=== PATIENT | female | born 1965 | race Caucasian/White ===

== ENCOUNTER 2018-03-31 10:07 | Emergency (ER) | payer OTHER ==
--- NOTE | 2018-03-31 10:59 | ERPHSYRPT ---
- History of Present Illness Time Seen by Provider: 03/31/18 10:35 Source: patient Exam Limitations: no limitations Physician History: 52 y/o white female with h/o migraine headaches presents with migraine headache for 4 days. pt is not on any chronic, abortive migraine medications. pt denies trauma to head. her headache pain is typical for her migraines. Timing/Duration: day(s) (4) Quality: aching, throbbing Head Pain Location: global Severity of Pain-Max: moderate Severity of Pain-Current: moderate Recent Head Trauma: no recent headache/trauma Modifying Factors: Improves With: exposure to light Associated Symptoms: sensitive to light, No confusion, No dizziness, No facial pain, No loss of consciousness, No vision changes, No visual disturbance Previous symptoms: same symptoms as today Allergies/Adverse Reactions: aspirin Allergy (Verified 01/24/13 11:40) cefadroxil [Cefadroxil] Allergy (Verified 01/24/13 11:40) Penicillins Allergy (Verified 01/24/13 11:40) Sulfa (Sulfonamide Antibiotics) Allergy (Verified 11/02/13 15:54) acetaminophen [From Tylenol] Adverse Reaction (Verified 11/02/13 15:54) Home Medications: Clonazepam 1 mg PO BID 12/18/11 [History] Coreg 12.5 mg 12.5 mg PO BID 12/18/11 [History] Glimepiride 2 mg 2 mg PO BID 12/18/11 [History] Lantus Solostar 35 units SQ HS 12/18/11 [History] Proair Hfa 1 puff IH PRN 12/18/11 [History] ceLEXa 20 MG 20 mg PO DAILY 12/18/11 [History] Furosemide 40 mg [Lasix 40 MG] 1 tab PO DAILY 01/24/13 [History] Lisinopril/Hydrochlorothiazide [Lisinopril-Hctz 10-12.5 mg Tab] 1 tab PO DAILY 01/24/13 [History] Sumatriptan Succinate [Imitrex] 1 tab PO DAILY 01/24/13 [History] Tizanidine HCl 4 mg [Zanaflex 4 MG] 1 tab PO Q6H PRN 01/24/13 [History] Hx Tetanus, Diphtheria Vaccination/Date Given: Yes (UNKNOWN) Hx Influenza Vaccination/Date Given: No Hx Pneumococcal Vaccination/Date Given: No - Review of Systems Constitutional: No Symptoms Eyes: Photophobia, No Vision Changes, No Double Vision Ears, Nose, & Throat: No Symptoms Respiratory: No Symptoms Cardiac: No Symptoms Abdominal/Gastrointestinal: No Symptoms Genitourinary Symptoms: No Symptoms Musculoskeletal: No Symptoms Skin: No Symptoms Neurological: Headache Psychological: No Symptoms Endocrine: No Symptoms Hematologic/Lymphatic: No Symptoms Immunological/Allergic: No Symptoms All Other Systems: Reviewed and Negative - Past Medical History Pertinent Past Medical History: Yes Neurological History: No Pertinent History ENT History: No Pertinent History Cardiac History: Hypertension Respiratory History: COPD, Asthma, Emphysema Endocrine Medical History: Diabetes Type II Musculoskeletal History: Degenerative Disk Disease GI Medical History: No Pertinent History History: No Pertinent History Psycho-Social History: Depression, Anxiety Female Reproductive Disorders: No Pertinent History - Past Surgical History Past Surgical History: Yes Neuro Surgical History: No Pertinent History Cardiac: No Pertinent History Respiratory: No Pertinent History Gastrointestinal: Appendectomy, Cholecystectomy Genitourinary: No Pertinent History Musculoskeletal: No Pertinent History Female Surgical History: Hysterectomy Other Surgical History: hands and neck - Social History Smoking Status: Current every day smoker How long have you smoked: 33 YEARS Exposure to second hand smoke: Yes Alcohol Use: None Drug Use: none Patient Lives Alone: No Significant Family History: heart disease, diabetes, hypertension - Physical Exam General Appearance: mild distress, alert, anxiety Eye Exam: PERRL/EOMI, eyes nml inspection Ears, Nose, Throat Exam: normal ENT inspection, moist mucous membranes Neck Exam: normal inspection, non-tender, supple, full range of motion Respiratory Exam: normal breath sounds, lungs clear, airway intact, No chest tenderness, No respiratory distress, No accessory muscle use, No rhonchi, No wheezing, No stridor Cardiovascular Exam: regular rate/rhythm, normal heart sounds, normal peripheral pulses Gastrointestinal/Abdominal Exam: soft, No tenderness, No guarding, No rebound Back Exam: normal inspection, normal range of motion, No CVA tenderness Extremity Exam: normal inspection, normal range of motion, pelvis stable Mental Status Exam: alert, oriented x 3, cooperative mysql dba Exam: normal hearing, normal speech, PERRL, tongue midline Coordination/Gait Exam: normal gait Motor/Sensory Exam: no motor deficit, no sensory deficit Skin Exam: normal color, warm Lymphatic Exam: No adenopathy SpO2 Interpretation: normal Oxygen Delivery: Room Air - Course Nursing assessment & vital signs reviewed: Yes - Progress Progress: improved Air Movement: good Blood Culture(s) Obtained: No Antibiotics given: No Counseled pt/family regarding: diagnosis, need for follow-up - Departure Time of Disposition: 11:00 Departure Disposition: Home Clinical Impression: Migraine headache Condition: Stable Critical Care Time: No Referrals: DELORIS HENRIQUEZ MD [Primary Care Provider] - Additional Instructions: follow up today with primary doctor for further management
[2018-03-31] MEDS ORDERED: Hydromorphone 1 mg/ml Ampule IV ONE (11:01)
[2018-03-31] MEDS ORDERED: Phenergan 25 MG INJ IV ONE (11:01)
[2018-03-31] MEDS ORDERED: Phenergan 25 MG INJ ONE (11:06)
[2018-03-31] MEDS ORDERED: Hydromorphone 1 mg/ml Ampule ONE (11:06)
[2018-03-31 11:37] VITALS: BP 137/95; PULSE 80; O2SAT 97
== END 2018-03-31 11:44 | disposition home or self-care (01) ==
LOC: ED 10:07
DX: G43.909 Migraine, unspecified, not intractable, without status migrainosus (principal); I10 Essential (primary) hypertension; E11.9 Type 2 diabetes mellitus without complications; Z79.4 Long term (current) use of insulin; Z79.899 Other long term (current) drug therapy
CPT/HCPCS: 36000; 96374; 96375; 99284; J1170; J2550

== ENCOUNTER 2018-06-23 16:48 | Emergency (ER) | payer OTHER ==
[2018-06-23] MEDS ORDERED: BABY ASPIRIN 81 MG CHEW PO ONE (17:02)
[2018-06-23] MEDS ORDERED: DUONEB 0.5-3 MG/3 ml Neb IH ONE ×2 (17:05→17:13)
[2018-06-23] MEDS ORDERED: BABY ASPIRIN 81 MG CHEW ONE (17:09)
[2018-06-23] MEDS ORDERED: Sodium Chloride 0.9% 1000 ML 1,000 ML ONE (17:09)
--- NOTE | 2018-06-23 17:13 | ERPHSYRPT ---
- History of Present Illness Time Seen by Provider: 06/23/18 17:08 Historian: patient Exam Limitations: no limitations Patient Subjective Stated Complaint: pt reports chest pain, back pain and bilat leg pain starting 4 days ago. reports she has swelling to her legs feet and face. pt also reports shortness of breath. Triage Nursing Assessment: pt is aox3, pt appears in no distress, pt pupils perrl, resps easy and non labored, wheezes heard upon auscultation, pt is able to speak in full 6-7 word sentences, radial pulses strong and equal, heart tones strong and regular, cap refill < 3 seconds, pt skin pink warm dry. no edema appreciated, pedal pulses strong and equal. skin intact. Physician History: 52-year-old white female arrives with complaint of sharp stabbing chest pain, swelling to her feet and feet and legs swelling in her feet and legs going on for 4 days stabbing chest pains in her anterior chest going on for 3 days. She has not complained of nausea she does state that she is short of breath. She tells me that she went to see her diabetic doctor today but did not tell him about the pain. Past medical history includes high blood pressure, COPD, asthma, emphysema, diabetes type 2, degenerative disc disease, depression, anxiety Past surgical history includes appendectomy, cholecystectomy, hysterectomy Social history positive for tobacco use positive for marijuana use. Timing/Duration: day(s) (leg swelling and facial swelling for 4 days, stabbing chest pain for 3 days) Activities at Onset: none Quality: stabbing Location: central Chest Pain Radiation: no radiation Severity of Pain-Max: moderate Severity of Pain-Current: moderate Modifying Factors: Improves With: nothing Associated Symptoms: shortness of breath, No nausea, No vomiting, No palpitations (she was), No heartburn, No abdominal pain, No cough, No hurts to breathe, No diaphoresis, No chills, No fever, No fatigue, No weakness, No swelling/lump in chest, No syncope, No rash, No headache, No dizziness (she says it makes me vom), No edema, No back pain Prior Chest Pain/Cardiac Workup: no prior chest pain Nitro Today/Relief: no nitro taken today Aspirin Treatment Today: 81 mg x 4, provided by ED (she has no chest pain foshe will get some aspiri) Allergies/Adverse Reactions: aspirin Allergy (Verified 06/23/18 17:03) cefadroxil [Cefadroxil] Allergy (Verified 06/23/18 17:03) Penicillins Allergy (Verified 06/23/18 17:03) Sulfa (Sulfonamide Antibiotics) Allergy (Verified 06/23/18 17:03) acetaminophen [From Tylenol] Adverse Reaction (Verified 06/23/18 17:03) Home Medications: Albuterol Common Canister [Proventil Common Canister] 2 puff IH QIDPRN PRN 03/31/18 [History] Diazepam 5 mg PO TID 03/31/18 [History] Gabapentin 400 mg PO BID 03/31/18 [History] Insulin Glargine,Hum.rec.anlog [Toujeo Solostar] 40 units SQ HS 03/31/18 [ History] Insulin Glargine,Hum.rec.anlog [Toujeo Solostar] 80 units SQ QAM 03/31/18 [ History] Metformin HCl 500 mg PO BID 03/31/18 [History] PANTOPRAZOLE 40 mg Tablet [Protonix 40MG Tablet] 40 mg PO QAM 03/31/18 [ History] Sertraline HCl 150 mg PO DAILY 03/31/18 [History] Tizanidine HCl 4 mg PO BID 03/31/18 [History] Hx Tetanus, Diphtheria Vaccination/Date Given: No Hx Influenza Vaccination/Date Given: No Hx Pneumococcal Vaccination/Date Given: No Immunizations Up to Date: Yes - Review of Systems Constitutional: No Fever, No Chills Eyes: No Symptoms Ears, Nose, & Throat: No Symptoms Respiratory: Dyspnea, No Cough Cardiac: Chest Pain (sharp stabbing anterior chest pain.), Edema (leg edema) Abdominal/Gastrointestinal: No Abdominal Pain, No Nausea, No Vomiting, No Diarrhea Genitourinary Symptoms: No Dysuria Musculoskeletal: No Back Pain, No Neck Pain Skin: No Rash Neurological: No Dizziness, No Focal Weakness, No Sensory Changes Psychological: No Symptoms Endocrine: No Symptoms All Other Systems: Reviewed and Negative - Past Medical History Pertinent Past Medical History: Yes Neurological History: No Pertinent History ENT History: No Pertinent History Cardiac History: Hypertension Respiratory History: COPD, Asthma, Emphysema Endocrine Medical History: Diabetes Type II Musculoskeletal History: Degenerative Disk Disease GI Medical History: No Pertinent History History: No Pertinent History Psycho-Social History: Depression, Anxiety Female Reproductive Disorders: No Pertinent History - Past Surgical History Past Surgical History: Yes Neuro Surgical History: No Pertinent History Cardiac: No Pertinent History Respiratory: No Pertinent History Gastrointestinal: Appendectomy, Cholecystectomy Genitourinary: No Pertinent History Musculoskeletal: No Pertinent History Female Surgical History: Hysterectomy Other Surgical History: hands and neck - Social History Smoking Status: Current every day smoker How long have you smoked: 33 YEARS Exposure to second hand smoke: Yes Alcohol Use: None Drug Use: marijuana Patient Lives Alone: No Significant Family History: heart disease, diabetes, hypertension - Female History Hx Last Menstrual Period: hyst - Nursing Vital Signs Nursing Vital Signs: Initial Vital Signs Temperature 97.9 F 06/23/18 16:49 Pulse Rate 82 06/23/18 16:49 Respiratory Rate 22 06/23/18 16:49 Blood Pressure 159/83 06/23/18 16:49 O2 Sat by Pulse Oximetry 99 06/23/18 16:49 Pain Scale Pain Intensity 0 - Physical Exam General Appearance: no apparent distress, alert Eye Exam: PERRL/EOMI, eyes nml inspection Ears, Nose, Throat Exam: normal ENT inspection, moist mucous membranes Neck Exam: normal inspection, non-tender, supple, full range of motion Respiratory Exam: normal breath sounds, lungs clear, No respiratory distress Cardiovascular Exam: regular rate/rhythm, normal heart sounds, capillary refill <2 sec Gastrointestinal/Abdomen Exam: soft, No tenderness, No mass Back Exam: normal inspection, No CVA tenderness, No vertebral tenderness Extremity Exam: normal inspection, normal range of motion Neurologic Exam: alert, oriented x 3, cooperative, shipsmith II-XII nml as tested, normal mood/affect, sensation nml, No motor deficits Skin Exam: normal color, warm, dry SpO2 Interpretation: normal (99%) SpO2: 99 - Course Nursing assessment & vital signs reviewed: Yes EKG Interpreted by Me: RATE (83 bpm), Sinus Rhythm, NORMAL AXIS, Other (EKG: Sinus rhythm, 83 bpm, normal axis, no acute ST or T wave changes, normal EKG) - Radiology Exams Chest X-ray Interpretation: Interpreted by me (no acute disease process noted) Ordered Tests: Active Orders 24 hr Category Date Time Status Neck Band Operator STAT Care 06/23/18 17:03 Active EKG-ER Only STAT Care 06/23/18 17:02 Active IV Insertion STAT Care 06/23/18 17:02 Active CHEST 1 VIEW (PORTABLE) Stat Exams 06/23/18 17:03 Taken AMYLASE Stat Lab 06/23/18 17:15 Completed CBC W DIFF Stat Lab 06/23/18 17:15 Completed CMP Stat Lab 06/23/18 17:15 Completed D-DIMER QUANTITATION Stat Lab 06/23/18 17:15 Completed ETHYL ALCOHOL Stat Lab 06/23/18 17:15 Completed Glucose,Critical Care Urgent Lab 06/23/18 17:06 Completed LIPASE Stat Lab 06/23/18 17:15 Completed Lactic Acid Stat Lab 06/23/18 17:02 Completed NT PRO BNP Stat Lab 06/23/18 17:15 Completed PROTIME WITH INR Stat Lab 06/23/18 17:15 Completed PTT Stat Lab 06/23/18 17:15 Completed TROPONIN Q3H Lab 06/23/18 17:15 Completed TROPONIN Q3H Lab 06/23/18 20:15 Ordered TROPONIN Q3H Lab 06/23/18 23:15 Ordered TROPONIN Q3H Lab 06/24/18 02:15 Ordered TROPONIN Q3H Lab 06/24/18 05:15 Ordered UA W/RFX UR CULTURE Stat Lab 06/23/18 18:11 Completed Urine Triage Profile Stat Lab 06/23/18 18:30 Completed VENOUS BLOOD GAS Stat Lab 06/23/18 17:05 Completed Respiratory Nebulizer STAT RT 06/23/18 17:05 Completed Respiratory Therapy Assessment DAILY RT 06/24/18 07:00 Active Medication Summary Generic Name Dose Route Start Last Admin Trade Name Freq PRN Reason Stop Dose Admin Sodium Chloride 1,000 mls @ 100 mls/hr 06/23/18 17:15 06/23/18 17:11 Sodium Chloride 0.9% 1000 Ml IV 07/23/18 17:14 100 mls/hr .Q10H MARIVEL Administration Discontinued Medications Generic Name Dose Route Start Last Admin Trade Name Freq PRN Reason Stop Dose Admin Albuterol/Ipratropium 3 ml 06/23/18 17:05 06/23/18 17:15 Duoneb 0.5-3 Mg/3 Ml Neb IH 06/23/18 17:06 3 ml STAT ONE Administration Albuterol/Ipratropium Confirm 06/23/18 17:13 Duoneb 0.5-3 Mg/3 Ml Neb Administered 06/23/18 17:14 Dose 3 ml IH .STK-MED ONE Aspirin 324 mg 06/23/18 17:02 06/23/18 17:10 Baby Aspirin 81 Mg Chew PO 06/23/18 17:03 324 mg STAT ONE Administration Aspirin Confirm 06/23/18 17:09 Baby Aspirin 81 Mg Chew Administered 06/23/18 17:10 Dose 324 mg .ROUTE .STK-MED ONE Azithromycin 500 mg 06/23/18 18:58 Zithromax 250 Mg Tablet PO 06/23/18 18:59 STAT ONE Dextrose 50 ml 06/23/18 17:58 06/23/18 18:09 D50w 50 Ml Abboject IV 06/23/18 17:59 50 ml STAT ONE Administration Dextrose Confirm 06/23/18 18:03 D50w 50 Ml Abboject Administered 06/23/18 18:04 Dose 50 ml IV .STK-MED ONE Methylprednisolone Sodium Succinate 125 mg 06/23/18 18:58 Solu-Medrol 125 Mg IV 06/23/18 18:59 STAT ONE Pantoprazole Sodium 40 mg 06/23/18 17:50 06/23/18 17:55 Protonix 40mg Tablet PO 06/23/18 17:51 40 mg STAT ONE Administration Pantoprazole Sodium Confirm 06/23/18 17:54 Protonix 40mg Tablet Administered 06/23/18 17:55 Dose 40 mg .ROUTE .STK-MED ONE Lab/Rad Data: Laboratory Result Diagrams 06/23/18 17:15 06/23/18 17:15 Laboratory Results 06/23/18 06/23/18 06/23/18 Range/Units 18:30 18:11 17:15 WBC (4.0-10.5) K/mm3 RBC (4.1-5.4) M/mm3 Hgb (12.0-16.0) gm/dl Hct (35-47) % MCV (78-100) fl MCH (26-32) pg MCHC (32-36) g/dl RDW (11.5-14.0) % Plt Count (150-450) K/mm3 MPV (6-9.5) fl Gran % (36.0-66.0) % Eos # (Auto) (0-0.5) Absolute Lymphs (auto) (1.0-4.6) Absolute Monos (auto) (0.0-1.3) Lymphocytes % (24.0-44.0) % Monocytes % (0.0-12.0) % Eosinophils % (0.00-5.0) % Basophils % (0.0-0.4) % Absolute Granulocytes (1.4-6.9) Basophils # (0-0.4) PT (9.95-12.35) SECONDS INR (0.8-3.0) APTT (25.3-37.0) SECONDS D-Dimer (215-500) ng/mL pO2/FiO2 Ratio % VBG pH (7.32-7.42) VBG pCO2 at Pat Temp (42-55) mm/Hg VBG pO2 at Pat Temp (25-40) mm/Hg VBG HCO3 (22-28) meq/L VBG O2 Sat (Heather) (95-100) VBG Base Excess (-2.0-2.0) VBG Hemoglobin VBG Carboxyhemoglobin (0.0-6.9) % T HGB POC Potassium (3.5-5.1) Glucose (70-110) Sodium (137-145) mmol/L Potassium (3.5-5.1) mmol/L Chloride (98-107) mmol/L Carbon Dioxide (22-30) mmol/L Anion Gap (5-15) MEQ/L BUN (7-17) mg/dL Creatinine (0.52-1.04) mg/dL Estimated GFR ML/MIN Lactic Acid (0.4-2.0) Calcium (8.4-10.2) mg/dL Total Bilirubin (0.2-1.3) mg/dL AST (14-36) U/L ALT (0-35) U/L Alkaline Phosphatase (38-126) U/L Troponin I (0.000-0.034) ng/mL NT-Pro-B Natriuret Pep (0-900) pg/mL Serum Total Protein (6.3-8.2) g/dL Albumin (3.5-5.0) g/dL Amylase (30-110) U/L Lipase 50 (23-300) U/L Urine Color YELLOW (YELLOW) Urine Appearance CLEAR (CLEAR) Urine pH 5.0 (5-6) Ur Specific Randolph 1.019 (1.005-1.025) Urine Protein 30 (Negative) Urine Ketones NEGATIVE (NEGATIVE) Urine Blood NEGATIVE (0-5) Aleks/ul Urine Nitrite NEGATIVE (NEGATIVE) Urine Bilirubin NEGATIVE (NEGATIVE) Urine Urobilinogen 2 (0-1) mg/dL Ur Leukocyte Esterase NEGATIVE (NEGATIVE) Urine WBC (Auto) NONE (0-5) /HPF Urine RBC (Auto) 0-2 (0-2) /HPF U Epithel Cells (Auto) NONE (FEW) /HPF Urine Bacteria (Auto) NONE (NEGATIVE) /HPF Urine Mucus (Auto) SLIGHT (NEGATIVE) /HPF Urine Culture Reflexed NO (NO) Urine Glucose NEGATIVE (NEGATIVE) mg/dL Urine Opiates Level NEGATIVE (NEGATIVE) Ur Methadone NEGATIVE (NEGATIVE) Urine Barbiturates NEGATIVE (NEGATIVE) Ur Phencyclidine (PCP) NEGATIVE (NEGATIVE) Urine Amphetamine NEGATIVE (NEGATIVE) U Benzodiazepine Level POSITIVE (NEGATIVE) Urine Cocaine NEGATIVE (NEGATIVE) Urine Marijuana (THC) POSITIVE (NEGATIVE) Ethyl Alcohol (0-10) mg/dL 06/23/18 06/23/18 06/23/18 Range/Units 17:15 17:15 17:15 WBC (4.0-10.5) K/mm3 RBC (4.1-5.4) M/mm3 Hgb (12.0-16.0) gm/dl Hct (35-47) % MCV (78-100) fl MCH (26-32) pg MCHC (32-36) g/dl RDW (11.5-14.0) % Plt Count (150-450) K/mm3 MPV (6-9.5) fl Gran % (36.0-66.0) % Eos # (Auto) (0-0.5) Absolute Lymphs (auto) (1.0-4.6) Absolute Monos (auto) (0.0-1.3) Lymphocytes % (24.0-44.0) % Monocytes % (0.0-12.0) % Eosinophils % (0.00-5.0) % Basophils % (0.0-0.4) % Absolute Granulocytes (1.4-6.9) Basophils # (0-0.4) PT 12.0 (9.95-12.35) SECONDS INR 1.03 (0.8-3.0) APTT 28.3 (25.3-37.0) SECONDS D-Dimer 226 (215-500) ng/mL pO2/FiO2 Ratio % VBG pH (7.32-7.42) VBG pCO2 at Pat Temp (42-55) mm/Hg VBG pO2 at Pat Temp (25-40) mm/Hg VBG HCO3 (22-28) meq/L VBG O2 Sat (Heather) (95-100) VBG Base Excess (-2.0-2.0) VBG Hemoglobin VBG Carboxyhemoglobin (0.0-6.9) % T HGB POC Potassium (3.5-5.1) Glucose 56 L (70-110) Sodium 142 (137-145) mmol/L Potassium 3.9 (3.5-5.1) mmol/L Chloride 105 (98-107) mmol/L Carbon Dioxide 28 (22-30) mmol/L Anion Gap 13.2 (5-15) MEQ/L BUN 9 (7-17) mg/dL Creatinine 0.68 (0.52-1.04) mg/dL Estimated GFR > 60.0 ML/MIN Lactic Acid (0.4-2.0) Calcium 10.1 (8.4-10.2) mg/dL Total Bilirubin 0.50 (0.2-1.3) mg/dL AST 23 (14-36) U/L ALT 20 (0-35) U/L Alkaline Phosphatase 79 (38-126) U/L Troponin I < 0.012 (0.000-0.034) ng/mL NT-Pro-B Natriuret Pep 342 (0-900) pg/mL Serum Total Protein 8.2 (6.3-8.2) g/dL Albumin 4.3 (3.5-5.0) g/dL Amylase 43 (30-110) U/L Lipase (23-300) U/L Urine Color (YELLOW) Urine Appearance (CLEAR) Urine pH (5-6) Ur Specific Randolph (1.005-1.025) Urine Protein (Negative) Urine Ketones (NEGATIVE) Urine Blood (0-5) Aleks/ul Urine Nitrite (NEGATIVE) Urine Bilirubin (NEGATIVE) Urine Urobilinogen (0-1) mg/dL Ur Leukocyte Esterase (NEGATIVE) Urine WBC (Auto) (0-5) /HPF Urine RBC (Auto) (0-2) /HPF U Epithel Cells (Auto) (FEW) /HPF Urine Bacteria (Auto) (NEGATIVE) /HPF Urine Mucus (Auto) (NEGATIVE) /HPF Urine Culture Reflexed (NO) Urine Glucose (NEGATIVE) mg/dL Urine Opiates Level (NEGATIVE) Ur Methadone (NEGATIVE) Urine Barbiturates (NEGATIVE) Ur Phencyclidine (PCP) (NEGATIVE) Urine Amphetamine (NEGATIVE) U Benzodiazepine Level (NEGATIVE) Urine Cocaine (NEGATIVE) Urine Marijuana (THC) (NEGATIVE) Ethyl Alcohol < 10 (0-10) mg/dL 06/23/18 06/23/18 06/23/18 Range/Units 17:15 17:06 17:05 WBC 8.4 (4.0-10.5) K/mm3 RBC 4.48 (4.1-5.4) M/mm3 Hgb 14.2 (12.0-16.0) gm/dl Hct 41.8 (35-47) % MCV 93.3 (78-100) fl MCH 31.7 (26-32) pg MCHC 34.0 (32-36) g/dl RDW 13.5 (11.5-14.0) % Plt Count 264 (150-450) K/mm3 MPV 10.6 H (6-9.5) fl Gran % 56.0 (36.0-66.0) % Eos # (Auto) 0.21 (0-0.5) Absolute Lymphs (auto) 2.90 (1.0-4.6) Absolute Monos (auto) 0.55 (0.0-1.3) Lymphocytes % 34.4 (24.0-44.0) % Monocytes % 6.5 (0.0-12.0) % Eosinophils % 2.5 (0.00-5.0) % Basophils % 0.6 (0.0-0.4) % Absolute Granulocytes 4.71 (1.4-6.9) Basophils # 0.05 (0-0.4) PT (9.95-12.35) SECONDS INR (0.8-3.0) APTT (25.3-37.0) SECONDS D-Dimer (215-500) ng/mL pO2/FiO2 Ratio 21.0 % VBG pH 7.36 (7.32-7.42) VBG pCO2 at Pat Temp 53 (42-55) mm/Hg VBG pO2 at Pat Temp 31 (25-40) mm/Hg VBG HCO3 29.9 H* (22-28) meq/L VBG O2 Sat (Heather) 71.8 L (95-100) VBG Base Excess 3.1 H (-2.0-2.0) VBG Hemoglobin 15.2 VBG Carboxyhemoglobin 8.6 H* (0.0-6.9) % T HGB POC Potassium 3.9 (3.5-5.1) Glucose 55 L (70-110) Sodium (137-145) mmol/L Potassium (3.5-5.1) mmol/L Chloride (98-107) mmol/L Carbon Dioxide (22-30) mmol/L Anion Gap (5-15) MEQ/L BUN (7-17) mg/dL Creatinine (0.52-1.04) mg/dL Estimated GFR ML/MIN Lactic Acid (0.4-2.0) Calcium (8.4-10.2) mg/dL Total Bilirubin (0.2-1.3) mg/dL AST (14-36) U/L ALT (0-35) U/L Alkaline Phosphatase (38-126) U/L Troponin I (0.000-0.034) ng/mL NT-Pro-B Natriuret Pep (0-900) pg/mL Serum Total Protein (6.3-8.2) g/dL Albumin (3.5-5.0) g/dL Amylase (30-110) U/L Lipase (23-300) U/L Urine Color (YELLOW) Urine Appearance (CLEAR) Urine pH (5-6) Ur Specific Randolph (1.005-1.025) Urine Protein (Negative) Urine Ketones (NEGATIVE) Urine Blood (0-5) Aleks/ul Urine Nitrite (NEGATIVE) Urine Bilirubin (NEGATIVE) Urine Urobilinogen (0-1) mg/dL Ur Leukocyte Esterase (NEGATIVE) Urine WBC (Auto) (0-5) /HPF Urine RBC (Auto) (0-2) /HPF U Epithel Cells (Auto) (FEW) /HPF Urine Bacteria (Auto) (NEGATIVE) /HPF Urine Mucus (Auto) (NEGATIVE) /HPF Urine Culture Reflexed (NO) Urine Glucose (NEGATIVE) mg/dL Urine Opiates Level (NEGATIVE) Ur Methadone (NEGATIVE) Urine Barbiturates (NEGATIVE) Ur Phencyclidine (PCP) (NEGATIVE) Urine Amphetamine (NEGATIVE) U Benzodiazepine Level (NEGATIVE) Urine Cocaine (NEGATIVE) Urine Marijuana (THC) (NEGATIVE) Ethyl Alcohol (0-10) mg/dL 06/23/18 Range/Units 17:02 WBC (4.0-10.5) K/mm3 RBC (4.1-5.4) M/mm3 Hgb (12.0-16.0) gm/dl Hct (35-47) % MCV (78-100) fl MCH (26-32) pg MCHC (32-36) g/dl RDW (11.5-14.0) % Plt Count (150-450) K/mm3 MPV (6-9.5) fl Gran % (36.0-66.0) % Eos # (Auto) (0-0.5) Absolute Lymphs (auto) (1.0-4.6) Absolute Monos (auto) (0.0-1.3) Lymphocytes % (24.0-44.0) % Monocytes % (0.0-12.0) % Eosinophils % (0.00-5.0) % Basophils % (0.0-0.4) % Absolute Granulocytes (1.4-6.9) Basophils # (0-0.4) PT (9.95-12.35) SECONDS INR (0.8-3.0) APTT (25.3-37.0) SECONDS D-Dimer (215-500) ng/mL pO2/FiO2 Ratio % VBG pH (7.32-7.42) VBG pCO2 at Pat Temp (42-55) mm/Hg VBG pO2 at Pat Temp (25-40) mm/Hg VBG HCO3 (22-28) meq/L VBG O2 Sat (Heather) (95-100) VBG Base Excess (-2.0-2.0) VBG Hemoglobin VBG Carboxyhemoglobin (0.0-6.9) % T HGB POC Potassium (3.5-5.1) Glucose (70-110) Sodium (137-145) mmol/L Potassium (3.5-5.1) mmol/L Chloride (98-107) mmol/L Carbon Dioxide (22-30) mmol/L Anion Gap (5-15) MEQ/L BUN (7-17) mg/dL Creatinine (0.52-1.04) mg/dL Estimated GFR ML/MIN Lactic Acid 1.5 (0.4-2.0) Calcium (8.4-10.2) mg/dL Total Bilirubin (0.2-1.3) mg/dL AST (14-36) U/L ALT (0-35) U/L Alkaline Phosphatase (38-126) U/L Troponin I (0.000-0.034) ng/mL NT-Pro-B Natriuret Pep (0-900) pg/mL Serum Total Protein (6.3-8.2) g/dL Albumin (3.5-5.0) g/dL Amylase (30-110) U/L Lipase (23-300) U/L Urine Color (YELLOW) Urine Appearance (CLEAR) Urine pH (5-6) Ur Specific Randolph (1.005-1.025) Urine Protein (Negative) Urine Ketones (NEGATIVE) Urine Blood (0-5) Aleks/ul Urine Nitrite (NEGATIVE) Urine Bilirubin (NEGATIVE) Urine Urobilinogen (0-1) mg/dL Ur Leukocyte Esterase (NEGATIVE) Urine WBC (Auto) (0-5) /HPF Urine RBC (Auto) (0-2) /HPF U Epithel Cells (Auto) (FEW) /HPF Urine Bacteria (Auto) (NEGATIVE) /HPF Urine Mucus (Auto) (NEGATIVE) /HPF Urine Culture Reflexed (NO) Urine Glucose (NEGATIVE) mg/dL Urine Opiates Level (NEGATIVE) Ur Methadone (NEGATIVE) Urine Barbiturates (NEGATIVE) Ur Phencyclidine (PCP) (NEGATIVE) Urine Amphetamine (NEGATIVE) U Benzodiazepine Level (NEGATIVE) Urine Cocaine (NEGATIVE) Urine Marijuana (THC) (NEGATIVE) Ethyl Alcohol (0-10) mg/dL - Progress Progress: improved (side 100s distress Alzheimer's) Air Movement: fair Progress Note: 06/23/18 17:13 52-year-old white female with history of high blood pressure, COPD, asthma, emphysema, diabetes type 2, degenerative disc disease, depression, anxiety. Arrives with complaint of leg and face swelling for 4 days she states that she' s been having stabbing chest pain anterior chest for 3 days. She has no nausea she does state she is short of breath. Patient with bilateral few scattered wheezes on auscultation. Patient does state that she is allergic to aspirin and Tylenol she states both of those make her nauseous there does not appear to be any anaphylactic reaction or rashes associated with these there is no shortness of breath associated with these. Will go ahead and give patient aspirin 324 mg orally. Will give patient DuoNeb treatment. Await appropriate laboratory studies. Patient does state that she has been seen by her diabetic doctor today she states that she did not describe any of her pain to her diabetic doctor because he's not a heart doctor. 06/23/18 18:59 Patient is feeling better she does not want to stay for repeat troponin I have told her I cannot completely rule out cardiac etiology for her symptoms. Will plan on placing the patient on Zithromax she states she has albuterol at home. She was given one amp of D50 secondary to a blood sugar of 50. Will give patient an injection of Solu-Medrol. Impression COPD. Noncardiac chest pain. - Departure Departure Disposition: Home Clinical Impression: Non-cardiac chest pain COPD (chronic obstructive pulmonary disease) Qualifiers: COPD type: unspecified COPD Qualified Code(s): J44.9 - Chronic obstructive pulmonary disease, unspecified Condition: Fair Critical Care Time: No Referrals: KOMAL KIDD [Primary Care Provider] - Instructions: Chronic Obstructive Pulmonary Disease Additional Instructions: Return home. Plenty of fluids. Zithromax as prescribed. Monitor your blood sugars carefully. Use your inhalers as prescribed by your family doctor. Follow-up with your family doctor. Return for acute distress or for severe symptoms. Prescriptions: Azithromycin 250 mg [Zithromax 250 MG TABLET] 250 mg PO DAILY #4 tablet
[2018-06-23] MEDS ORDERED: Sodium Chloride 0.9% 1000 ML 1,000 ML IV SCH (17:15)
[2018-06-23 17:25] LABS: BASOPHIL % 0.6 % (0.0-0.4); Basophil (Absolute #) 0.05 (0-0.4); Eosinophil % 2.5 % (0.00-5.0); Eosinophil (Absolute #) 0.21 (0-0.5); Granulocyte Absolute (ANC) 4.71 (1.4-6.9); Hematocrit 41.8 % (35-47); Hemoglobin 14.2 gm/dl (12.0-16.0); Lymphocytes % 34.4 % (24.0-44.0); Mean Cell Volume 93.3 fl (78-100); Mean Corpuscular Hemoglobin 31.7 pg (26-32); Mean Platelet Volume 10.6 fl (6-9.5); Monocyte (Absolute #) 0.55 (0.0-1.3); Monocytes % 6.5 % (0.0-12.0); Platelet Count 264 K/mm3 (150-450); Red Blood Count 4.48 M/mm3 (4.1-5.4); Red Cell Distribution Width 13.5 % (11.5-14.0); White Blood Count 8.4 K/mm3 (4.0-10.5)
[2018-06-23 17:35] LABS: INR 1.03 (0.8-3.0)
[2018-06-23 17:38] LABS: PTT 28.3 SECONDS (25.3-37.0)
[2018-06-23 17:48] LABS: VBG BASE EXCESS 3.1 (-2.0-2.0); VBG CARBOXYHEMOGLOBIN 8.6 % T HGB (0.0-6.9); VBG HCO3- 29.9 meq/L (22-28); VBG HEMOGLOBIN 15.2; VBG O2 SATURATION 71.8 (95-100); VBG POTASSIUM 3.9 (3.5-5.1); VBG pH 7.36 (7.32-7.42)
[2018-06-23 17:50] LABS: ALBUMIN 4.3 g/dL (3.5-5.0); ALKALINE PHOSPHATASE 79 U/L (38-126); AMYLASE 43 U/L (30-110); ANION GAP 13.2 MEQ/L (5-15); BLOOD UREA NITROGEN 9 mg/dL (7-17); CHLORIDE 105 mmol/L (98-107); Calcium 10.1 mg/dL (8.4-10.2); Carbon Dioxide 28 mmol/L (22-30); Creatinine 1 0.68 mg/dL (0.52-1.04); ETHYL ALCOHOL < 10 mg/dL (0-10); Glucose 56 mg/dL (74-106); NT PRO BNP 342 pg/mL (0-900); Potassium 3.9 mmol/L (3.5-5.1); SGOT/AST 23 U/L (14-36); SGPT/ALT 20 U/L (0-35); SODIUM 142 mmol/L (137-145); Total Protein 8.2 g/dL (6.3-8.2)
[2018-06-23] MEDS ORDERED: Protonix 40MG Tablet PO ONE (17:50)
[2018-06-23] MEDS ORDERED: Protonix 40MG Tablet ONE (17:54)
[2018-06-23] MEDS ORDERED: D50W 50 ml Abboject IV ONE ×2 (17:58→18:03)
[2018-06-23 18:32] LABS: Appearance CLEAR (CLEAR); Bilirubin NEGATIVE (NEGATIVE); Blood NEGATIVE Ery/ul (0-5); Glucose NEGATIVE (NEGATIVE); Ketones NEGATIVE (NEGATIVE); Leukocyte Esterase NEGATIVE (NEGATIVE); Mucus SLIGHT /HPF (NEGATIVE); Nitrite NEGATIVE (NEGATIVE); Protein,Urine Dip 30 (Negative); RBC 0-2 /HPF (0-2); Specific Gravity 1.019 (1.005-1.025); Urobilinogen 2 mg/dL (0-1)
[2018-06-23 18:50] LABS: Amphetamine,Urine NEGATIVE (NEGATIVE); Barbiturate,Urine NEGATIVE (NEGATIVE); Benzodiazepine,Urine POSITIVE (NEGATIVE); Cocaine,Urine NEGATIVE (NEGATIVE); Methadone,Urine NEGATIVE (NEGATIVE); Opiate,Urine NEGATIVE (NEGATIVE); PCP,Urine NEGATIVE (NEGATIVE); THC,Urine POSITIVE (NEGATIVE)
[2018-06-23] MEDS ORDERED: Zithromax 250 MG TABLET PO ONE (18:58)
[2018-06-23] MEDS ORDERED: solu-MEDROL 125 MG IV ONE (18:58)
[2018-06-23] MEDS ORDERED: solu-MEDROL 125 MG ONE (19:09)
[2018-06-23] MEDS ORDERED: Zithromax 250 MG TABLET ONE (19:09)
[2018-06-23 19:14] VITALS: BP 138/54; PULSE 81; O2SAT 98
--- NOTE | 2018-06-24 08:37 | XRAY ---
Indication: Chest and back pain. Short of breath. Comparison: December 18, 2011. Portable chest remains clear. Heart and mediastinal structures within normal limits. Bony thorax intact again with mild degenerative changes. Interval lower cervical fusion surgery. Impression: Nonacute chest.
== END 2018-06-23 19:30 | disposition home or self-care (01) ==
LOC: ED 16:48
DX: R07.89 Other chest pain (principal); J44.9 Chronic obstructive pulmonary disease, unspecified
CPT/HCPCS: 36000; 36415; 71045; 80053; 80307; 81001; 82150; 82805; 82947; 83605; 83690; 83880; 84484; 85025; 85379; 85610; 85730; 93005; 93041; 94640; 96360; 96361; 96374; 96375; 99285; J2930; A9270-GY; G0480

== ENCOUNTER 2018-09-30 22:25 | Emergency (ER) | payer OTHER ==
--- NOTE | 2018-09-30 22:29 | ERPHSYRPT ---
- History of Present Illness Time Seen by Provider: 09/30/18 22:45 Source: patient, family Exam Limitations: no limitations Physician History: 53 y/o white female presents with sudden pop left hip. 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 pt did not take any medications for the pain. pt able to walk and bear weight. pt states she is allergic to tylenol and ibuprofen. Method of Injury: other (no injury. ) Occurred: just prior to arrival Quality: aching (mild ) Severity of Pain-Max: mild Severity of Pain-Current: mild Lower Extremities Pain: hip: left Modifying Factors: Improves With: movement Associated Symptoms: popping sensation Allergies/Adverse Reactions: aspirin Allergy (Verified 06/23/18 17:03) cefadroxil [Cefadroxil] Allergy (Verified 06/23/18 17:03) Penicillins Allergy (Verified 06/23/18 17:03) Sulfa (Sulfonamide Antibiotics) Allergy (Verified 06/23/18 17:03) acetaminophen [From Tylenol] Adverse Reaction (Verified 06/23/18 17:03) ibuprofen Adverse Reaction (Verified 09/30/18 22:47) Home Medications: Albuterol Common Canister [Proventil Common Canister] 2 puff IH QIDPRN PRN 03/31/18 [History] Diazepam 5 mg PO TID 03/31/18 [History] Gabapentin 400 mg PO BID 03/31/18 [History] Insulin Glargine,Hum.rec.anlog [Toujeo Solostar] 40 units SQ HS 03/31/18 [ History] Insulin Glargine,Hum.rec.anlog [Toujeo Solostar] 80 units SQ QAM 03/31/18 [ History] Metformin HCl 500 mg PO BID 03/31/18 [History] PANTOPRAZOLE 40 mg Tablet [Protonix 40MG Tablet] 40 mg PO QAM 03/31/18 [ History] Sertraline HCl 150 mg PO DAILY 03/31/18 [History] Tizanidine HCl 4 mg PO BID 03/31/18 [History] Hx Tetanus, Diphtheria Vaccination/Date Given: No Hx Influenza Vaccination/Date Given: No Hx Pneumococcal Vaccination/Date Given: No - Review of Systems Constitutional: No Symptoms Eyes: No Symptoms Ears, Nose, & Throat: No Symptoms Respiratory: No Symptoms Cardiac: No Symptoms Abdominal/Gastrointestinal: No Symptoms Genitourinary Symptoms: No Symptoms Musculoskeletal: Other (left hip tenderness) Skin: No Symptoms Neurological: No Symptoms Psychological: No Symptoms Endocrine: No Symptoms Hematologic/Lymphatic: No Symptoms Immunological/Allergic: No Symptoms All Other Systems: Reviewed and Negative - Past Medical History Pertinent Past Medical History: Yes Neurological History: No Pertinent History ENT History: No Pertinent History Cardiac History: Hypertension Respiratory History: COPD, Asthma, Emphysema Endocrine Medical History: Diabetes Type II Musculoskeletal History: Degenerative Disk Disease GI Medical History: No Pertinent History History: No Pertinent History Psycho-Social History: Depression, Anxiety Female Reproductive Disorders: No Pertinent History - Past Surgical History Past Surgical History: Yes Neuro Surgical History: No Pertinent History Cardiac: No Pertinent History Respiratory: No Pertinent History Gastrointestinal: Appendectomy, Cholecystectomy Genitourinary: No Pertinent History Musculoskeletal: No Pertinent History Female Surgical History: Hysterectomy Other Surgical History: hands and neck - Social History Smoking Status: Current every day smoker How long have you smoked: 33 YEARS Exposure to second hand smoke: Yes Alcohol Use: None Drug Use: marijuana Patient Lives Alone: No Significant Family History: heart disease, diabetes, hypertension - Nursing Vital Signs Nursing Vital Signs: Initial Vital Signs Temperature 99.1 F 09/30/18 22:41 Pulse Rate 88 09/30/18 22:41 Respiratory Rate 18 09/30/18 22:41 Blood Pressure 118/91 09/30/18 22:41 O2 Sat by Pulse Oximetry 96 09/30/18 22:41 Pain Scale Pain Intensity 8 - Physical Exam General Appearance: no apparent distress, alert, anxiety Eyes, Ears, Nose, Throat Exam: normal ENT inspection, moist mucous membranes Neck Exam: normal inspection, non-tender, supple, full range of motion Cardiovascular/Respiratory Exam: chest non-tender, normal breath sounds, regular rate/rhythm Gastrointestinal/Abdominal Exam: non-tender Hips Exam: right: non-tender, no evidence of injury, left: bone tenderness, bilateral: normal inspection, normal range of motion Legs Exam: bilateral leg: non-tender, normal inspection, normal range of motion , no evidence of injury Knees Exam: bilateral knee: non-tender, normal inspection, normal range of motion, no evidence of injury Ankle Exam: bilateral ankle: non-tender, normal inspection, normal range of motion, no evidence of injury Foot Exam: bilateral foot: non-tender, normal inspection, normal range of motion , no evidence of injury Neuro/Tendon Exam: normal sensation, normal motor functions, normal tendon functions Mental Status Exam: alert, oriented x 3, cooperative Skin Exam: normal color, warm, dry SpO2 Interpretation: normal O2 Delivery: Room Air Ordered Tests: Active Orders 24 hr Category Date Time Status HIP UNI (2V) INCL PEL IF DONE Stat Exams 09/30/18 22:51 Taken - Progress Progress: unchanged Progress Note: 09/30/18 23:59 xray left hip and pelvis-no acute fx or dislocation Counseled pt/family regarding: diagnosis, need for follow-up, rad results - Departure Departure Disposition: Home Clinical Impression: Left hip pain Condition: Stable Critical Care Time: No Referrals: KOMAL KIDD [Primary Care Provider] - Additional Instructions: follow up with primary doctor for persistent pain.
[2018-09-30 23:22] VITALS: O2SAT 97
[2018-10-01] MEDS ORDERED: ZOFRAN ODT 4 MG PO ONE (00:02)
[2018-10-01] MEDS ORDERED: MORPHINE SULFATE 2 MG INJ IM ONE (00:02)
[2018-10-01 00:12] VITALS: BP 116/86; PULSE 83
--- NOTE | 2018-10-01 09:12 | XRAY ---
Indication: Left hip pain. Comparison: None AP pelvis and 2 views of the left hip demonstrates mild scattered colonic fecal debris. No other bony, articular, or soft tissue abnormalities.
== END 2018-10-01 00:20 | disposition home or self-care (01) ==
LOC: ED 22:25
DX: M25.552 Pain in left hip (principal); X50.0XXA Overexertion from strenuous movement or load, initial encounter; E11.9 Type 2 diabetes mellitus without complications; Z79.4 Long term (current) use of insulin; Z79.899 Other long term (current) drug therapy; J44.9 Chronic obstructive pulmonary disease, unspecified; J45.909 Unspecified asthma, uncomplicated; I10 Essential (primary) hypertension
CPT/HCPCS: 73502; 99283

== ENCOUNTER 2019-05-26 15:22 | Emergency (ER) | payer OTHER ==
--- NOTE | 2019-05-26 15:44 | ERPHSYRPT ---
- History of Present Illness Time Seen by Provider: 05/26/19 15:41 Source: patient Exam Limitations: no limitations Patient Subjective Stated Complaint: here for headache for 2 days, pt states this is like her migraines at home,she is unable to take over the counter meds because it hurts her stomache Triage Nursing Assessment: pt alert, walked in wearing sunglassed, vomiting, mucus membranes moist, moves all ext well , Physician History: The patient is a 53-year-old female with a past medical history significant for diabetes mellitus, reported migraine headaches, and peripheral neuropathy presents with a chief complaint of a "migraine". Onset reportedly was 2 days ago. The patient states that she suffers from migraines frequently and reportedly has 10 migraines a month for which she has to smoke marijuana to make her headache symptoms go away. Her pain is described as a frontal headache that is nonradiating constant and associated with photophobia, phonophobia, nausea. She states these are her typical migraine symptoms with the exception of it being more severe. She states she smoked marijuana yesterday and attempt to make her migraine go away but it did not work. She denies recent head trauma, focal weakness/paresthesias, fever, chills in addition to nuchal rigidity. She reportedly is not been sick recently. She spoke to her primary care provider today, Juanita Kidd and was told to come to the emergency department for further evaluation and management. Allergies/Adverse Reactions: aspirin Allergy (Verified 05/26/19 15:36) cefadroxil [Cefadroxil] Allergy (Verified 05/26/19 15:36) Penicillins Allergy (Verified 05/26/19 15:36) Sulfa (Sulfonamide Antibiotics) Allergy (Verified 05/26/19 15:36) acetaminophen [From Tylenol] Adverse Reaction (Verified 05/26/19 15:36) ibuprofen Adverse Reaction (Verified 05/26/19 15:36) Home Medications: Albuterol Common Canister [Ventolin Common Canister] 2 puff IH QIDPRN PRN 03/31/18 [History] Gabapentin 400 mg PO BID 03/31/18 [History] Insulin Glargine,Hum.rec.anlog [Ninfa Toneyostcornelia] 40 units SQ HS 03/31/18 [ History] Insulin Glargine,Hum.rec.anlog [Toujeo Dawnanathan] 80 units SQ QAM 03/31/18 [ History] Metformin HCl 500 mg PO BID 03/31/18 [History] PANTOPRAZOLE 40 mg Tablet [Protonix 40MG Tablet] 40 mg PO QAM 03/31/18 [ History] Tizanidine HCl 4 mg PO BID 03/31/18 [History] Alprazolam 0.5 mg [xanAX 0.5 MG] 1 ea BID 05/26/19 [History] Famotidine 20 mg [Pepcid 20 MG] 1 ea DAILY 05/26/19 [History] Insulin Lispro [Admelog] 1 unit DAILY 05/26/19 [History] Hx Tetanus, Diphtheria Vaccination/Date Given: No Hx Influenza Vaccination/Date Given: No Hx Pneumococcal Vaccination/Date Given: No Immunizations Up to Date: Yes - Review of Systems Constitutional: No Fever, No Chills, No Weakness Eyes: Photophobia Ears, Nose, & Throat: No Ear Pain, No Ear Discharge Respiratory: No Cough, No Cyanosis, No Dyspnea, No Dyspnea on Exertion (DODSON) Cardiac: No Chest Pain Abdominal/Gastrointestinal: Nausea, No Abdominal Pain, No Vomiting Musculoskeletal: No Symptoms Skin: No Symptoms Neurological: Headache, No Dizziness, No Sensory Changes, No Speech Changes Psychological: No Symptoms, Drug Abuse (Marijuana use), No Alcohol Abuse, No Suicidal Ideations All Other Systems: Reviewed and Negative - Past Medical History Pertinent Past Medical History: Yes Neurological History: Migraines, Peripheral Neuropathy ENT History: No Pertinent History Cardiac History: Hypertension Respiratory History: COPD, Asthma, Emphysema Endocrine Medical History: Diabetes Type II Musculoskeletal History: Degenerative Disk Disease GI Medical History: Other History: No Pertinent History Psycho-Social History: Depression, Anxiety Female Reproductive Disorders: No Pertinent History Other Medical History: fatty liver - Past Surgical History Past Surgical History: Yes Neuro Surgical History: No Pertinent History Cardiac: No Pertinent History Respiratory: No Pertinent History Gastrointestinal: Appendectomy, Cholecystectomy Genitourinary: No Pertinent History Musculoskeletal: No Pertinent History, Orthopedic Surgery Female Surgical History: Hysterectomy Other Surgical History: hands and neck,knee - Social History Smoking Status: Current every day smoker How long have you smoked: 33 YEARS Exposure to second hand smoke: Yes Alcohol Use: None Drug Use: marijuana Patient Lives Alone: No Significant Family History: heart disease, diabetes, hypertension - Female History Hx Last Menstrual Period: post Hx Now: No - Nursing Vital Signs Nursing Vital Signs: Initial Vital Signs Temperature 97.3 F 05/26/19 15:28 Pulse Rate 94 H 05/26/19 15:28 Respiratory Rate 18 05/26/19 15:28 Blood Pressure 171/110 05/26/19 15:28 O2 Sat by Pulse Oximetry 96 05/26/19 15:28 Pain Scale Pain Intensity 8 - Physical Exam General Appearance: no apparent distress, alert Eye Exam: PERRL/EOMI, eyes nml inspection, photophobia, No scleral icterus, No pale conjunctivae, No EOM palsy/anisocoria Ears, Nose, Throat Exam: normal ENT inspection, TMs normal, pharynx normal, moist mucous membranes, No TM abnormal (L), No pharyngeal erythema, No tonsillar exudate Neck Exam: normal inspection, non-tender, supple, No meningismus Respiratory Exam: normal breath sounds Cardiovascular Exam: regular rate/rhythm, normal heart sounds, normal peripheral pulses (Radial pulse 2+ bilaterally) Gastrointestinal/Abdomen Exam: soft, other (Insulin pump noted and attached to abdominal wall ), No tenderness Pelvic Exam: not done Rectal Exam: deferred Back Exam: normal inspection Extremity Exam: normal inspection, 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 No ankle clonus, normal gait and patient able to ambulate without difficulty or with need of assistance), No motor deficits, No sensory deficit, No disoriented, No confusion, No motor weakness, No facial droop, No slurred speech, No aphasia Skin Exam: normal color, warm, dry, No rash, No petechiae SpO2: 96 O2 Delivery: Room Air - Course Nursing assessment & vital signs reviewed: Yes Ordered Tests: Active Orders 24 hr Category Date Time Status IV Insertion STAT Care 05/26/19 16:09 Active Medication Summary Discontinued Medications Generic Name Dose Route Start Last Admin Trade Name Freq PRN Reason Stop Dose Admin Diphenhydramine HCl 25 mg 05/26/19 15:53 05/26/19 16:03 Benadryl 50 Mg/Ml IV 05/26/19 15:54 25 mg STAT ONE Administration Diphenhydramine HCl Confirm 05/26/19 15:58 Benadryl 50 Mg/Ml Administered 05/26/19 15:59 Dose 50 mg .ROUTE .STK-MED ONE Haloperidol Lactate 2 mg 05/26/19 16:56 05/26/19 17:02 Haldol 5 Mg IV 05/26/19 16:57 2 mg STAT ONE Administration Haloperidol Lactate Confirm 05/26/19 17:01 Haldol 5 Mg Administered 05/26/19 17:02 Dose 5 mg .ROUTE .STK-MED ONE Sodium Chloride 1,000 mls @ 999 mls/hr 05/26/19 15:53 05/26/19 17:02 Sodium Chloride 0.9% 1000 Ml IV 05/26/19 16:53 Infused .Q1H1M STA Infusion Sodium Chloride Confirm 05/26/19 15:59 Sodium Chloride 0.9% 1000 Ml Administered 05/26/19 16:00 Dose 1,000 mls @ ud .ROUTE .STK-MED ONE Ketorolac Tromethamine 15 mg 05/26/19 15:53 05/26/19 16:01 Toradol 30 Mg Injection IV 05/26/19 15:54 15 mg STAT ONE Administration Ketorolac Tromethamine Confirm 05/26/19 15:58 Toradol 30 Mg Injection Administered 05/26/19 15:59 Dose 30 mg .ROUTE .STK-MED ONE Metoclopramide HCl 10 mg 05/26/19 15:53 05/26/19 16:02 Reglan 10 Mg/2 Ml IV 05/26/19 15:54 10 mg STAT ONE Administration Metoclopramide HCl Confirm 05/26/19 15:59 Reglan 10 Mg/2 Ml Administered 05/26/19 16:00 Dose 10 mg .ROUTE .STK-MED ONE Ondansetron HCl 4 mg 05/26/19 15:53 05/26/19 16:03 Zofran 4 Mg/2 Ml Vial IV 05/26/19 15:54 4 mg STAT ONE Administration Ondansetron HCl Confirm 05/26/19 15:58 Zofran 4 Mg/2 Ml Vial Administered 05/26/19 15:59 Dose 4 mg .ROUTE .flck.me ONE - Progress Progress: improved, re-examined Progress Note: 05/26/19 15:41 Is not involved in this patient's care. The attending physician was entered incorrectly by registration. Dr. Malave is currently caring for this patient at this time. 05/26/19 16:05 I spoke to Juanita Kidd, the patient's primary care provider, and discussed the case with her. She is very familiar with this patient and states that the patient frequently calls her with multiple ailments and wanting prescription medicine called into her pharmacy. She herself has been suspicious of "seeking behavior" and currently agrees with management to include IV Toradol, Reglan in addition to Benadryl for treatment of her migraine symptoms here today. She wanted me to inform the patient to have her call her office first thing tomorrow and she will schedule a urgent follow-up appointment for to be evaluated to possibly be prescribed Imitrex for an abortive medication the patient's migraines. 05/26/19 16:56 Patient was reassessed to find that her headache was still an 8 out of 10 although she appeared comfortable and sleepy on my exam. She was willing to try Haldol after the risks and benefits of this medication were discussed in addition to it being off label use headache/migraine symptoms. 2 mg has been ordered at this time. 05/26/19 17:26 Is reassessed to find that she was feeling better and was comfortable being discharged home. 05/26/19 17:39 Nontoxic in appearance. The patient does not seem to have any red flags for headache other than her age but given the chronicity of her symptoms and her benign neuro exam today I will defer neurocranial imaging at this time. 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 I reviewed the patient's EMR and it appears she had an EEG in 2012 that was within normal limits. She also had a head CT dated February 26, 2017 that was also noted to be within normal limits at that time. Honestly, the patient does display some features of chronic pain and some seeking behavior however she did seem to respond to treatment consistent with non-opiates in the emergency department today. Ultimately, she was discharged home with instructions to follow-up with her primary care provider and was informed of the discussion I had with her upon her presentation the emergency department today. The patient agreed with and verbally understood the discharge plan. Counseled pt/family regarding: diagnosis, need for follow-up - Departure Departure Disposition: Home Clinical Impression: Migraine, Marijuana abuse Condition: Stable Critical Care Time: No Referrals: JUANITA KIDD [Primary Care Provider] - Instructions: Migraine Headache (DC), Marijuana, Headache, Adult (DC) Additional Instructions: Please call and schedule a follow-up appointment with your primary care provider soon as possible. Please call the office first thing tomorrow morning to have this appointment scheduled. If you develop any uneasiness or inability to stay still or any shakiness please take [id number] Benadryl to counteract your symptoms, specifically 25 mg every 6-8 hours. This may be a side effect of the Haldol you were given in the emergency department today. You can purchase this medication [id number].
[2019-05-26] MEDS ORDERED: BENADRYL 50 MG/ML ONE (15:58)
[2019-05-26] MEDS ORDERED: TORAdol 30 mg Injection ONE (15:58)
[2019-05-26] MEDS ORDERED: Zofran 4 MG/2 ML VIAL ONE (15:58)
[2019-05-26] MEDS ORDERED: Sodium Chloride 0.9% 1000 ML 1,000 ML ONE (15:59)
[2019-05-26] MEDS ORDERED: Reglan 10 MG/2 ML ONE (15:59)
[2019-05-26] MEDS: Sodium Chloride 0.9% 1000 ML 1,000 ML IV STA (16:01)
[2019-05-26] MEDS: TORAdol 30 mg Injection IV ONE (16:01)
[2019-05-26] MEDS: Reglan 10 MG/2 ML IV ONE (16:02)
[2019-05-26] MEDS: Zofran 4 MG/2 ML VIAL IV ONE (16:03)
[2019-05-26] MEDS: BENADRYL 50 MG/ML IV ONE (16:03)
[2019-05-26 16:11] VITALS: PULSE 76
[2019-05-26 16:35] VITALS: BP 122/77
[2019-05-26 16:48] VITALS: O2SAT 96
[2019-05-26] MEDS ORDERED: Haldol 5 MG ONE (17:01)
[2019-05-26] MEDS: Haldol 5 MG IV ONE (17:02)
== END 2019-05-26 17:41 | disposition home or self-care (01) ==
LOC: ED 15:22
DX: G43.909 Migraine, unspecified, not intractable, without status migrainosus (principal); F12.10 Cannabis abuse, uncomplicated; E11.9 Type 2 diabetes mellitus without complications; G62.9 Polyneuropathy, unspecified; I10 Essential (primary) hypertension; F41.9 Anxiety disorder, unspecified; K76.0 Fatty (change of) liver, not elsewhere classified; Z72.0 Tobacco use
CPT/HCPCS: 36000; 96360; 96374; 96375; 99284; J1200; J1630; J1885; J2405

== ENCOUNTER 2021-04-16 11:49 | Emergency (ER) | payer OTHER ==
[2021-04-16 11:57] VITALS: BP 141/73; PULSE 78; O2SAT 98
--- NOTE | 2021-04-16 12:30 | ERPHSYRPT ---
- History of Present Illness Time Seen by Provider: 04/16/21 11:55 Source: patient Patient Subjective Stated Complaint: body aches Triage Nursing Assessment: Patient brought back to ED via EMS and transferred self to bed. Patient A+O X3. Patient's skin pink, warm and dry. Patient complains of cough, headache, bodyaches and fatigue that started early this am. Patient states her neighbor which is her sister is positive for COVID and has been around her. Patient complains of body aches all over 10/31. Physician History: Patient is a 55-year-old female presents to our ED via EMS for evaluation of body aches and viral syndrome. Symptoms started today. Patient states she awoke with the symptoms. Patient states she has been exposed to Covid. Patient complains of a infrequent dry cough. No shortness of breath. No chest pain. No nausea or vomiting. Patient had a headache earlier this morning. Headache is significantly improved. Patient complains of diffuse body aches. Patient declined pain medication. Patient states she cannot have Tylenol due to chronic liver disease. No trauma. No fever. No dizziness or lightheadedness. Patient denies feeling weak. Symptoms are mild in intensity. No specific worsening improving factors. Patient voices no other complaints or concerns at this time. Timing/Duration: today Severity: mild Modifying Factors: Improves With: nothing Associated Symptoms: denies symptoms, cough, headaches, syncope, seizure, No shortness of breath Allergies/Adverse Reactions: aspirin Allergy (Verified 04/16/21 11:51) cefadroxil [Cefadroxil] Allergy (Verified 04/16/21 11:51) Penicillins Allergy (Verified 04/16/21 11:51) Sulfa (Sulfonamide Antibiotics) Allergy (Verified 04/16/21 11:51) acetaminophen [From Tylenol] Adverse Reaction (Verified 04/16/21 11:51) ibuprofen Adverse Reaction (Verified 04/16/21 11:51) Home Medications: Albuterol Common Canister [Ventolin Common Canister] 2 puff IH QIDPRN PRN 03/31/18 [History] Gabapentin 400 mg PO BID 03/31/18 [History] Insulin Glargine,Hum.rec.anlog [Ninfa Valerio] 40 units SQ HS 03/31/18 [History] Insulin Glargine,Hum.rec.anlog [Ninfa Valerio] 80 units SQ QAM 03/31/18 [History] Metformin HCl 500 mg PO BID 03/31/18 [History] PANTOPRAZOLE 40 mg Tablet [Protonix 40MG Tablet] 40 mg PO QAM 03/31/18 [History] Tizanidine HCl 4 mg PO BID 03/31/18 [History] ALPRAZolam 0.5 MG [xanAX 0.5 MG] 1 ea BID 05/26/19 [History] Famotidine 20 mg [Pepcid 20 MG] 1 ea DAILY 05/26/19 [History] Insulin Lispro [Admelog] 1 unit DAILY 05/26/19 [History] Hx Tetanus, Diphtheria Vaccination/Date Given: No Hx Influenza Vaccination/Date Given: No Hx Pneumococcal Vaccination/Date Given: No Immunizations Up to Date: Yes Travel Risk - International Travel Have you traveled outside of the country in past 3 weeks: No - Coronavirus Screening Are you exhibiting any of the following symptoms?: Yes Symptoms: Cough: New Onset, Shortness of Breath, Headaches/Body Aches/Fatigue Close contact with a COVID-19 positive Pt in past 14-21 Days: Yes - Vaccine Status Have you recieved a Covid-19 vaccination: Yes 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 Services Specialist: Unknown - Vaccination Dates Dates if Unknown: unknown - Review of Systems Constitutional: No Symptoms, No Fever, No Chills Eyes: No Symptoms Ears, Nose, & Throat: No Symptoms Respiratory: No Symptoms, No Cough, No Dyspnea Cardiac: No Symptoms, No Chest Pain, No Edema, No Syncope Abdominal/Gastrointestinal: No Symptoms, No Abdominal Pain, No Nausea, No Vomiting, No Diarrhea Genitourinary Symptoms: No Symptoms, No Dysuria Musculoskeletal: No Symptoms, No Back Pain, No Neck Pain Skin: No Symptoms, No Rash Neurological: No Symptoms, No Dizziness, No Focal Weakness, No Sensory Changes Psychological: No Symptoms Endocrine: No Symptoms Hematologic/Lymphatic: No Symptoms Immunological/Allergic: No Symptoms All Other Systems: Reviewed and Negative - Past Medical History Pertinent Past Medical History: Yes Neurological History: Migraines, Peripheral Neuropathy ENT History: No Pertinent History Cardiac History: Hypertension Respiratory History: COPD, Asthma, Emphysema Endocrine Medical History: Diabetes Type II Musculoskeletal History: Degenerative Disk Disease GI Medical History: Other History: No Pertinent History Psycho-Social History: Depression, Anxiety Female Reproductive Disorders: No Pertinent History Other Medical History: fatty liver - Past Surgical History Past Surgical History: Yes Neuro Surgical History: No Pertinent History Cardiac: No Pertinent History Respiratory: No Pertinent History Gastrointestinal: Appendectomy, Cholecystectomy Genitourinary: No Pertinent History Musculoskeletal: No Pertinent History, Orthopedic Surgery Female Surgical History: Hysterectomy Other Surgical History: hands and neck,knee - Social History Smoking Status: Current every day smoker How long have you smoked: 33 YEARS Exposure to second hand smoke: Yes Alcohol Use: None Drug Use: none Patient Lives Alone: No Significant Family History: heart disease, diabetes, hypertension - Female History Hx Now: No - Nursing Vital Signs Nursing Vital Signs: Initial Vital Signs Temperature 98.4 F 04/16/21 11:51 Pulse Rate 78 04/16/21 11:51 Respiratory Rate 18 04/16/21 11:51 Blood Pressure 141/73 04/16/21 11:51 O2 Sat by Pulse Oximetry 98 04/16/21 11:51 Pain Scale Pain Intensity 8 - Physical Exam General Appearance: no apparent distress, alert Eye Exam: PERRL/EOMI, eyes nml inspection, other (Conjunctival injection left eye. Patient states her left eye has been watering more than normal. She has a gritty sensation. No acute change in visual acuity) Ears, Nose, Throat Exam: normal ENT inspection, TMs normal, pharynx normal, moist mucous membranes Neck Exam: normal inspection, non-tender, supple, full range of motion Respiratory Exam: normal breath sounds, lungs clear, airway intact, No respiratory distress Cardiovascular Exam: regular rate/rhythm, normal heart sounds, normal peripheral pulses Gastrointestinal/Abdomen Exam: soft, normal bowel sounds, No tenderness, No mass Back Exam: normal inspection, normal range of motion, No CVA tenderness, No vertebral tenderness Extremity Exam: normal inspection, normal range of motion, pelvis stable Neurologic Exam: alert, oriented x 3, cooperative, normal mood/affect, sensation nml, No motor deficits Skin Exam: normal color, warm, dry, No rash Lymphatic Exam: No adenopathy SpO2 Interpretation: normal SpO2: 98 O2 Delivery: Room Air - Course Nursing assessment & vital signs reviewed: Yes - Progress Progress: improved Progress Note: Patient reassessed. She feels well. Patient states she wants to be tested for Covid. Patient otherwise states she is ready to go home. Covid test ordered. Patient appears to have a conjunctivitis of her left eye. A prescription for erythromycin ophthalmic forwarded to patient's pharmacy. 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 Vitals are essentially nonremarkable. Patient breathing easily. Lungs are clear. Physical exam reveals a left conjunctivitis otherwise nonremarkable. Patient agrees to follow-up with her production welder within 48 hours for evaluation. Patient agrees to follow-up with her primary care doctor within 48 hours for evaluation. Patient states she will quarantine until results of her Covid test become available. Patient voices no other complaints concerns at this time. Patient seen for discharge Portions of this note were created with voice recognition technology. There may be grammatical, spelling, punctuation or sound alike errors 04/16/21 13:02 Counseled pt/family regarding: diagnosis, need for follow-up - Departure Departure Disposition: Home Clinical Impression: Exposure to COVID-19 virus, conjunctivits left eye, Viral syndrome Condition: Stable Critical Care Time: No Referrals: KOMAL KIDD [Primary Care Provider] - Follow up/PCP as directed Instructions: Coronavirus Disease 2019 (COVID-19) ([place]) Additional Instructions: Please follow-up with your production welder within 48 hours for reevaluation. Please follow-up with your primary care doctor within 48 hours for evaluation. You will require quarantine pending your Covid test results Discharge/Care Plan JOHANA AKHTAR was seen on 04/16/21 in the Emergency Room. The patient was counseled regarding Diagnosis,Lab results, Imaging studies, need for follow up and when to return to the Emergency Room. Prescriptions given: Discharge Note I have spoken with the patient and/or caregivers. I have explained the patient's condition, diagnosis and treatment plan based on the information available to me at this time. I have answered the patient's and/or caregiver's questions and addressed any concerns. The patient and/or caregivers have as good understanding of the patient's diagnosis, condition and treatment plan as can be expected at this point. The vital signs have been stable. The patient's condition is stable and appropriate for discharge from the emergency department. The patient will pursue further outpatient evaluation with the primary care physician or other designated or consulting physician as outlined in the discharge instructions. The patient and/or caregivers are agreeable to this plan of care and follow-up instructions have been explained in detail. The patient and/or caregivers have received these instruction. The patient/and or caregivers are aware that any significant change in condition or worsening of symptoms should prompt an immediate return to this or the closest emergency department or call 911. Prescriptions: Erythromycin Base 3.5 gm [Erythromycin 3.5 GM OPHTH.] 3.5 gm OP QID 7 Days #1 unit
== END 2021-04-16 12:35 | disposition home or self-care (01) ==
LOC: ED 11:49
DX: B34.9 Viral infection, unspecified (principal); Z20.822 Contact with and (suspected) exposure to COVID-19; H10.9 Unspecified conjunctivitis; M79.10 Myalgia, unspecified site; I10 Essential (primary) hypertension; J43.9 Emphysema, unspecified; Z72.0 Tobacco use; E11.42 Type 2 diabetes mellitus with diabetic polyneuropathy; Z79.4 Long term (current) use of insulin; Z79.84 Long term (current) use of oral hypoglycemic drugs; K76.0 Fatty (change of) liver, not elsewhere classified; Z79.899 Other long term (current) drug therapy
CPT/HCPCS: 99283; U0003

== ENCOUNTER 2024-07-08 21:56 | Emergency (ER) | payer OTHER ==
[2024-07-08 22:02] VITALS: PULSE 84; RESP 18; TEMP 96.7
[2024-07-08 22:11] VITALS: O2SAT 98
[2024-07-08] MEDS ORDERED: Pepcid 20 MG ONE (22:26)
[2024-07-08] MEDS ORDERED: DELTASONE 20 MG ONE (22:27)
[2024-07-08] MEDS: Pepcid 20 MG PO ONE (22:28)
[2024-07-08] MEDS: DELTASONE 20 MG PO ONE (22:30)
--- NOTE | 2024-07-08 22:31 | ERPHSYRPT ---
- History of Present Illness Time Seen by Provider: 07/08/24 22:01 Source: patient Exam Limitations: no limitations Patient Subjective Stated Complaint: took my new b/p pill today (Propranolol) and began itching and sweating Triage Nursing Assessment: Pt ambulated into ER without diff. Pt c/o itching. Pt took her new b/p med Propranolol at 2100 and at 2130 began itching and sweating. Pt did take 50mg of po benadryl at home. Pt has a red blotchy rash to her back and reddened areas to both cheeks. No welts or bumps noted. Pt is not actively itching at this time. Pt denies any sob or difficulty swallowing or breathing. Physician History: 58 years old female with history of hypertension, diabetes mellitus started on propranolol, took her first dose around 9 PM and at 930 she started to have itching in the trunk area followed by itching in the face with some redness. Patient took 2 Benadryl with improvement of the itching but still have redness. No difficulty breathing or throat closing sensation. No swelling of tongue/floor of mouth. No irritation or itching in the throat. Denies feeling dizzy or lightheaded. No palpitations. Allergies/Adverse Reactions: aspirin Allergy (Verified 04/16/21 11:51) cefadroxil [Cefadroxil] Allergy (Verified 04/16/21 11:51) Penicillins Allergy (Verified 04/16/21 11:51) propranolol Allergy (Verified 07/08/24 22:11) Rash Sulfa (Sulfonamide Antibiotics) Allergy (Verified 04/16/21 11:51) acetaminophen [From Tylenol] Adverse Reaction (Verified 04/16/21 11:51) ibuprofen Adverse Reaction (Verified 04/16/21 11:51) Home Medications: Albuterol Common Canister [Ventolin Common Canister] 2 puff IH QIDPRN PRN 03/31/18 [History] Gabapentin 400 mg PO BID 03/31/18 [History] Insulin Glargine,Hum.rec.anlog [Toujeo Solostar] 40 units SQ HS 03/31/18 [History] Insulin Glargine,Hum.rec.anlog [Toujeo Solostar] 80 units SQ QAM 03/31/18 [History] Metformin HCl 500 mg PO BID 03/31/18 [History] PANTOPRAZOLE 40 mg Tablet [Protonix 40MG Tablet] 40 mg PO QAM 03/31/18 [History] Tizanidine HCl 4 mg PO BID 03/31/18 [History] ALPRAZolam 0.5 MG [xanAX 0.5 MG] 1 ea BID 05/26/19 [History] Famotidine 20 mg [Pepcid 20 MG] 1 ea DAILY 05/26/19 [History] Insulin Lispro [Admelog] 1 unit DAILY 05/26/19 [History] Hx Tetanus, Diphtheria Vaccination/Date Given: Yes Hx Influenza Vaccination/Date Given: No Hx Pneumococcal Vaccination/Date Given: No Travel Risk - International Travel Have you traveled outside of the country in past 3 weeks: No - Emerging Infectious Disease Are you exhibiting symptoms associated with any current EIDs: No - Review of Systems Constitutional: No Symptoms Ears, Nose, & Throat: No Symptoms Respiratory: No Symptoms Cardiac: No Symptoms Abdominal/Gastrointestinal: No Symptoms Neurological: No Symptoms Hematologic/Lymphatic: No Symptoms Immunological/Allergic: Other - Past Medical History Pertinent Past Medical History: Yes Neurological History: Migraines, Peripheral Neuropathy ENT History: No Pertinent History Cardiac History: Hypertension Respiratory History: COPD, Asthma, Emphysema Endocrine Medical History: Diabetes Type II Musculoskeletal History: Degenerative Disk Disease GI Medical History: Gallbladder Disease, Other History: No Pertinent History Psycho-Social History: Depression, Anxiety Female Reproductive Disorders: No Pertinent History Other Medical History: fatty liver - Past Surgical History Past Surgical History: Yes Neuro Surgical History: No Pertinent History Cardiac: No Pertinent History Respiratory: No Pertinent History Gastrointestinal: Appendectomy, Cholecystectomy Genitourinary: No Pertinent History Musculoskeletal: Orthopedic Surgery Female Surgical History: Hysterectomy Other Surgical History: hands and neck,knee Significant Family History: heart disease, diabetes, hypertension - Social History Smoking Status: Current every day smoker How long have you smoked: 48 yrs Exposure to second hand smoke: No Drug Use: marijuana - Social Determinants of Health Will the patient participate in the screening: Yes Do you worry about a steady place to live?: No Do you have any problems with any of the following?: Pest (bugs,ants,or mice) In the past 12 months,have you had to go without utilities?: No Transportation Issues: No Has anyone in your support network made you feel unsafe?: No Have you or anyone in your house had to go w/o enough food: No - Nursing Vital Signs Nursing Vital Signs: Initial Vital Signs Temperature 96.7 F 07/08/24 22:01 Pulse Rate 84 07/08/24 22:01 Respiratory Rate 18 07/08/24 22:01 Blood Pressure 179/97 07/08/24 22:01 O2 Sat by Pulse Oximetry 96 07/08/24 22:01 Pain Scale Pain Intensity 0 - Physical Exam General Appearance: no apparent distress, alert Eye Exam: PERRL/EOMI Ears, Nose, Throat Exam: normal ENT inspection, TMs normal, pharynx normal, moist mucous membranes Neck Exam: normal inspection, non-tender, supple, full range of motion Respiratory Exam: normal breath sounds, lungs clear Cardiovascular Exam: regular rate/rhythm, normal heart sounds Gastrointestinal/Abdomen Exam: soft, normal bowel sounds Back Exam: normal inspection, normal range of motion Neurologic Exam: alert, oriented x 3, cooperative Skin Exam: normal color SpO2 Interpretation: normal SpO2: 98 O2 Delivery: Room Air Ordered Tests: Medication Summary Discontinued Medications Generic Name Dose Route Start Last Admin Trade Name Freq PRN Reason Stop Dose Admin Famotidine 40 mg 07/08/24 22:21 Famotidine 20 Mg Tablet PO 07/08/24 22:22 STAT ONE Prednisone 60 mg 07/08/24 22:22 Prednisone 20 Mg Tablet PO 07/08/24 22:23 STAT ONE - Progress Progress: improved Progress Note: 07/08/24 23:28 58 years old is evaluated in the ER for allergic reaction to propranolol first dose which she took around 9 PM. Patient had itching and burning sensation but improved after taking Benadryl, still have some redness in the upper back on the face. No signs of angioedema. No difficulty breathing, lungs clear to auscultation. She is given Pepcid and prednisone, observed and redness is improved. Recommended stop taking propranolol and take Benadryl as needed. Will also send a prescription of steroid and Pepcid to the pharmacy. Patient is not in any distress, do not think needs any further evaluation and can be discharged with outpatient follow-up. Discussed signs symptoms of worsening needing return to ER which she seems understanding. Stable for discharge. Counseled pt/family regarding: diagnosis, need for follow-up Medical Desision Making - Risk of complications The pt has a mod risk of morbidity or mortality based on: Need for prescription drug management - Departure Departure Disposition: Home Clinical Impression: Allergic reaction Condition: Stable Critical Care Time: No Referrals: KOMAL KIDD [Primary Care Provider, UNKNOWN] - Follow up with PCP 1 day Instructions: Drug allergy Additional Instructions: Do not take propranolol. Take Benadryl as needed. Follow-up with your primary care for reevaluation. Return to the ER worsening rash or if having throat closing sensation, difficulty breathing, swelling of tongue/floor of mouth etc.
[2024-07-08 23:11] VITALS: BP 180/123
== END 2024-07-08 23:19 | disposition home or self-care (01) ==
LOC: ED 21:56
DX: L29.9 Pruritus, unspecified (principal); T44.7X5A Adverse effect of beta-adrenoreceptor antagonists, initial encounter; E11.42 Type 2 diabetes mellitus with diabetic polyneuropathy; I10 Essential (primary) hypertension; Z79.4 Long term (current) use of insulin; Z79.84 Long term (current) use of oral hypoglycemic drugs; Z79.899 Other long term (current) drug therapy; Z72.0 Tobacco use; Z59.19 Other inadequate housing
CPT/HCPCS: 99282; 99284; A9270-GY